=== PATIENT | male | born 1955 | race Caucasian/White ===

== ENCOUNTER 2018-09-12 01:52 | Outpatient (CLI) | payer OTHER, SELFPAY ==
--- NOTE | 2018-09-12 09:38 | DI.MRI_ITS ---
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 T2 sagittal, T1, T2, FLAIR and diffusion axial sequences were performed. There is a large area of encephalomalacia in the right frontal and parietal regions, as well as upper right temporal lobe. There is sulcal atrophy, which is more prominent than on the previous exam. The extent of the infarct appears greater than on the previous exam. There is mild global cerebral atrophy. No new infarct, hemorrhage or mass is seen. The vascular flow voids appear intact. The orbits, pituitary and mastoid air cells are unremarkable. There is mild maxillary sinus mucosal thickening. IMPRESSION: Large area of right frontoparietal and temporal encephalomalacia. No acute abnormalities are seen.
[2018-09-12 11:03] LABS: VALPROIC ACID 74.3 ug/mL (50-100)
[2018-09-12 11:31] LABS: TROPONIN-I 10.3 ug/mL (4.0-12.0); TSH (W/Ref FT4) 2.57 uIU/mL (0.36-3.74); Vitamin B12 242 pg/mL (193-986)
== END 2018-09-12 02:12 ==
PROVIDERS: PCP Family Medicine; Visit Provider Psychiatry & Neurology Neurology
DX: G40.109 Localization-related (focal) (partial) symptomatic epilepsy and epileptic syndromes with simple partial seizures, not intractable, without status epilepticus (principal); I69.211 Memory deficit following other nontraumatic intracranial hemorrhage; Z51.81 Encounter for therapeutic drug level monitoring; Z79.899 Other long term (current) drug therapy; G93.89 Other specified disorders of brain; G31.89 Other specified degenerative diseases of nervous system
CPT/HCPCS: 36415; 70551; 80156; 80164; 82607; 84443

== ENCOUNTER 2019-03-16 10:53 | Outpatient (CLI) | payer OTHER, SELFPAY ==
[2019-03-16 12:53] LABS: Abs Immature Grans 0.01 k/cumm (0.0-0.09); Absolute Basophil Count 0.02 k/cumm (0.0-0.2); Absolute Eosinophil Count 0.07 k/cumm (0.0-0.7); Absolute Lymphocyte Count 1.51 k/cumm (1.2-3.4); Absolute Monocyte Count 0.46 k/cumm (0.11-0.7); Absolute Neutrophil Count 2.63 k/cumm (1.2-6.7); Basophils % 0.4; Eosinophils % 1.5; HCT 44.8 % (40.0-50.0); HGB 14.5 g/dL (13.5-17.5); Immature Grans % 0.2 %; Lymphocytes % 32.1; Mean Corp. HGB Concentration 32.4 g/dL (32.0-36.0); Mean Corpuscular Volume 95.7 fL (80-95); Mean Platelet Volume 10.9 fL (8.0-11.0); Monocytes % 9.8; Platelet Count 177 x1000/uL (130-400); RBC 4.68 m/cumm (4.50-6.00); RBC Distribution Width 14.6 % (11.8-14.1)
[2019-03-16 13:35] LABS: ALT 15 U/L (16-63); AST 18 U/L (15-37); Albumin 3.8 g/dL (3.4-5.0); Alkaline Phosphatase 62 U/L (46-116); BUN 19 mg/dL (7-18); Bilirubin, Total 0.3 mg/dL (0.2-1.0); CREATININE 0.84 mg/dL (0.70-1.30); Chloride 109 mmol/L (98-107); Glucose 91 mg/dL (74-106); Potassium 4.1 mmol/L (3.5-5.1); Sodium 145 mmol/L (136-145); Total Protein 6.6 g/dL (6.4-8.2)
[2019-03-16 13:41] LABS: VALPROIC ACID 62.7 ug/mL (50-100)
[2019-03-16 13:48] LABS: TROPONIN-I 12.2 ug/mL (4.0-12.0)
[2019-03-17 09:23] LABS: PSA, Screening 0.6 ng/mL (0.0-4.5)
== END 2019-03-16 11:13 ==
PROVIDERS: PCP Family Medicine; Visit Provider Family Medicine
DX: Z00.00 Encounter for general adult medical examination without abnormal findings (principal); R56.9 Unspecified convulsions; Z51.81 Encounter for therapeutic drug level monitoring; Z12.5 Encounter for screening for malignant neoplasm of prostate
CPT/HCPCS: 36415; 80053; 84153; 80156; 80164; 85025

== ENCOUNTER 2019-05-07 16:21 | Outpatient (REF) | payer OTHER, SELFPAY ==
[2019-05-08 10:56] LABS: Bilirubin Small (Negative); Blood Trace-intact (Negative); Clarity Sl Cloudy (Clear); Glucose Negative (Negative); Ketones Trace mg/dL (Negative); Leukocyte Esterase Small (Negative); Nitrite Negative (Negative); Specific Gravity >= 1.030 (1.005-1.025); pH 6.5 (5-8)
[2019-05-08 10:58] LABS: Bacteria Few HPF (Negative); C & S Indicated? Yes; Casts 0-2 Hyaline LPF (Negative); Crystals Negative HPF (Negative); Epithelial Cells Few HPF (Negative); Mucus Moderate (Negative); RBC 0-2 HPF (0-2); WBC >50 HPF (0-5)
== END 2019-05-07 16:41 ==
LOC: LBN 16:21
PROVIDERS: PCP Family Medicine; Visit Provider Family Medicine
DX: R82.998 Other abnormal findings in urine (principal)
CPT/HCPCS: 87077; 81003; 81015; 87086; 87186

== ENCOUNTER 2020-03-17 12:53 | Outpatient (REF) | payer OTHER, SELFPAY ==
[2020-03-17 13:44] LABS: HCT 44.8 % (40.0-50.0); HGB 14.5 g/dL (13.5-17.5); MCH 30.5 pg (27.0-33.0); MCHC 32.4 % (32.0-36.0); MCV 94.3 fL (80-95); Platelet Count 181 10^3/uL (130-400); RBC 4.75 10^6/uL (4.36-5.78); RDW 14.4 % (11.8-14.1); RDW-SD 49.3 fL; WBC 3.52 10^3/uL (4.4-10.8)
[2020-03-17 14:00] LABS: ALT 22 U/L (16-63); AST 19 U/L (15-37); Alkaline Phosphatase 58 U/L (46-116); Anion Gap 3.8 mmol/L (3-11); BUN 20 mg/dL (7-18); Bilirubin, Total 0.3 mg/dL (0.2-1.0); CO2 29.2 mmol/L (21.0-32.0); CREATININE 0.9 mg/dL (0.70-1.30); Calcium 9.7 mg/dL (8.5-10.1); Chloride 108 mmol/L (98-107); Glucose 95 mg/dL (74-106); Potassium 4.4 mmol/L (3.5-5.1); Sodium 141 mmol/L (136-145); TROPONIN-I 9.9 ug/mL (4.0-12.0); Total Protein 6.7 g/dL (6.4-8.2)
[2020-03-17 14:02] LABS: VALPROIC ACID 47.4 ug/mL (50-100)
== END 2020-03-17 13:13 ==
LOC: LBN 12:53
PROVIDERS: PCP Family Medicine; Visit Provider Family Medicine
DX: Z00.00 Encounter for general adult medical examination without abnormal findings (principal); G40.109 Localization-related (focal) (partial) symptomatic epilepsy and epileptic syndromes with simple partial seizures, not intractable, without status epilepticus; I69.211 Memory deficit following other nontraumatic intracranial hemorrhage; Z51.81 Encounter for therapeutic drug level monitoring; Z79.899 Other long term (current) drug therapy
CPT/HCPCS: 80053; 85027; 80156; 80164

== ENCOUNTER 2020-07-19 18:00 | Outpatient (REF) | payer OTHER, SELFPAY ==
[2020-07-19 19:11] LABS: Absolute Basophil Count 0.02 10^3/uL (0.0-0.2); Absolute Eosinophil Count 0.09 10^3/uL (0.0-0.7); Absolute Lymphocyte Count 1.49 10^3/uL (1.2-3.4); Absolute Monocyte Count 0.38 10^3/uL (0.1-0.8); Absolute Neutrophil Count 1.56 10^3/uL (1.2-6.7); Basophils % 0.6; Eosinophils % 2.5; HCT 42.3 % (40.0-50.0); HGB 13.9 g/dL (13.5-17.5); Lymphocytes % 42.1; MCH 30.3 pg (27.0-33.0); MCHC 32.9 % (32.0-36.0); MCV 92.4 fL (80-95); MPV 11.9 fL (8.0-11.0); Monocytes % 10.7; Neutrophils % 44.1; Nucleated RBC 0 %; Platelet Count 162 10^3/uL (130-400); RBC 4.58 10^6/uL (4.36-5.78); RDW 14.6 % (11.8-14.1); RDW-SD 49.8 fL; WBC 3.54 10^3/uL (4.4-10.8)
== END 2020-07-19 18:01 | disposition home or self-care (01) ==
LOC: LBN 18:00
PROVIDERS: PCP Family Medicine; Visit Provider Family Medicine
DX: D72.819 Decreased white blood cell count, unspecified (principal)
CPT/HCPCS: 85025

== ENCOUNTER 2021-04-04 18:21 | Outpatient (REF) | payer OTHER, MEDICARE, SELFPAY ==
[2021-04-04 21:21] LABS: HCT 41.8 % (40.0-50.0); HGB 12.9 g/dL (13.5-17.5); MCH 28.9 pg (27.0-33.0); MCHC 30.9 % (32.0-36.0); MCV 93.5 fL (80-95); MPV 11.1 fL (8.0-11.0); Platelet Count 188 10^3/uL (130-400); RBC 4.47 10^6/uL (4.36-5.78); RDW 17.1 % (11.8-14.1); RDW-SD 59.2 fL; WBC 3.66 10^3/uL (4.4-10.8)
[2021-04-04 21:49] LABS: VALPROIC ACID 70.9 ug/mL
[2021-04-04 22:07] LABS: ALT 24 U/L (16-63); AST 19 U/L (15-37); Albumin 3.8 g/dL (3.4-5.0); Alkaline Phosphatase 75 U/L (46-116); Anion Gap 9.7 mmol/L (3-11); BUN 20 mg/dL (7-18); Bilirubin, Total 0.3 mg/dL (0.2-1.0); CO2 26.3 mmol/L (21.0-32.0); CREATININE 0.9 mg/dL (0.70-1.30); Calcium 9.4 mg/dL (8.5-10.1); Calculated LDL 100 mg/dL (<100); Chloride 109 mmol/L (98-107); Cholesterol 167 mg/dL (<200); Glucose 91 mg/dL (74-106); HDL Cholesterol 57 mg/dL (40-60); Potassium 4.3 mmol/L (3.5-5.1); Sodium 145 mmol/L (136-145); TROPONIN-I 7.6 ug/mL (4.0-12.0); Total Protein 7.1 g/dL (6.4-8.2); Triglyceride 50 mg/dL (<150); Vitamin B12 510 pg/mL (193-986)
== END 2021-04-04 18:22 | disposition home or self-care (01) ==
LOC: LBN 18:21
PROVIDERS: PCP Family Medicine; Visit Provider Family Medicine
DX: Z00.00 Encounter for general adult medical examination without abnormal findings (principal); E78.5 Hyperlipidemia, unspecified; E53.8 Deficiency of other specified B group vitamins; R56.9 Unspecified convulsions; Z51.81 Encounter for therapeutic drug level monitoring; Z79.899 Other long term (current) drug therapy
CPT/HCPCS: 80053; 80061; 85027; 80156; 80164; 82607

== ENCOUNTER 2021-08-29 02:56 | Outpatient (CLI) | payer OTHER, MEDICARE, SELFPAY ==
[2021-08-29 11:33] LABS: HCT 43.8 % (40.0-50.0); HGB 14.1 g/dL (13.5-17.5); MCH 29.6 pg (27.0-33.0); MCHC 32.2 % (32.0-36.0); MCV 92 fL (80-95); MPV 10.5 fL (8.0-11.0); Platelet Count 165 10^3/uL (130-400); RBC 4.77 10^6/uL (4.36-5.78); RDW 15.5 % (11.8-14.1); RDW-SD 52.3 fL; WBC 4.71 10^3/uL (4.4-10.8)
== END 2021-08-29 02:57 | disposition home or self-care (01) ==
LOC: LBO 02:58
PROVIDERS: PCP Family Medicine; Visit Provider Family Medicine
DX: G40.109 Localization-related (focal) (partial) symptomatic epilepsy and epileptic syndromes with simple partial seizures, not intractable, without status epilepticus (principal)
CPT/HCPCS: 36415; 85027

== ENCOUNTER 2022-03-30 01:51 | Outpatient (CLI) | payer OTHER, MEDICARE, SELFPAY ==
[2022-03-30 14:03] LABS: Abs Immature Grans 0.02 10^3/uL (0.0-0.06); Absolute Basophil Count 0.03 10^3/uL (0.0-0.2); Absolute Monocyte Count 0.45 10^3/uL (0.1-0.8); Absolute Neutrophil Count 2.09 10^3/uL (1.2-6.7); Basophils % 0.7; Eosinophils % 2.3; HCT 42.4 % (40.0-50.0); HGB 13.7 g/dL (13.5-17.5); Immature Grans % 0.5; Lymphocytes % 38.7; MCHC 32.3 % (32.0-36.0); MCV 93 fL (80-95); MPV 9.9 fL (8.0-11.0); Monocytes % 10.3; Neutrophils % 47.5; Platelet Count 184 10^3/uL (130-400); RBC 4.56 10^6/uL (4.36-5.78); RDW 14.9 % (11.8-14.1); RDW-SD 51.7 fL; WBC 4.39 10^3/uL (4.4-10.8)
[2022-03-30 14:53] LABS: TROPONIN-I 11.3 ug/mL (4.0-12.0); VALPROIC ACID 45.9 ug/mL
[2022-03-30 16:02] LABS: ALT 18 U/L (16-63); AST 18 U/L (15-37); Albumin 3.8 g/dL (3.4-5.0); Alkaline Phosphatase 71 U/L (46-116); Anion Gap 6.9 mmol/L (3-11); BUN 20 mg/dL (7-18); Bilirubin, Total 0.3 mg/dL (0.2-1.0); CO2 27.1 mmol/L (21.0-32.0); CREATININE 0.8 mg/dL (0.70-1.30); Calcium 9.7 mg/dL (8.5-10.1); Chloride 107 mmol/L (98-107); Estimated GFR 97.61 (mL/min/1.73m2); Glucose 95 mg/dL (74-106); Potassium 4.1 mmol/L (3.5-5.1); Sodium 141 mmol/L (136-145); Total Protein 6.7 g/dL (6.4-8.2); Vitamin B12 482 pg/mL (193-986)
== END 2022-03-30 01:52 | disposition home or self-care (01) ==
LOC: LBO 01:51
PROVIDERS: PCP Family Medicine; Visit Provider Family Medicine
DX: G40.109 Localization-related (focal) (partial) symptomatic epilepsy and epileptic syndromes with simple partial seizures, not intractable, without status epilepticus (principal); E53.8 Deficiency of other specified B group vitamins
CPT/HCPCS: 36415; 80053; 80156; 80164; 82607; 85025

== ENCOUNTER 2022-05-10 16:22 | Outpatient (REF) | payer OTHER, MEDICARE, SELFPAY ==
[2022-05-12 01:29] LABS: COVID-19 RT-PCR UVMMC Result Negative (Negative)
== END 2022-05-10 16:23 | disposition home or self-care (01) ==
LOC: LBN 16:22
PROVIDERS: PCP Family Medicine; Visit Provider Family Medicine
DX: Z20.822 Contact with and (suspected) exposure to COVID-19 (principal); Z01.818 Encounter for other preprocedural examination
CPT/HCPCS: U0003

== ENCOUNTER 2022-08-14 09:24 | Outpatient (CLI) | payer OTHER, MEDICARE, SELFPAY ==
--- NOTE | 2022-08-14 09:28 | DI.RAD_ITS ---
Exam(s) XR HIP PELVIS ADULT BL EXAM: XR HIP PELVIS ADULT BL CLINICAL HISTORY: b/l hip pain, M25.551, M25.552. TECHNIQUE: 2D digital imaging was performed. Five views. COMPARISON: No exams were available for comparison FINDINGS: BONES: No acute fracture is present. No bony destructive lesion is seen. JOINTS: No dislocation present. Severe narrowing of the left superior hip joint space with prominen t spurring at the superior acetabulum. Spurring also seen at the margin of the femoral head. Sclero sis is present. The right hip shows mild joint space narrowing and minimal periarticular spurring. The SI joints are unremarkable. There is small enthesophytes at the iliac wings. SOFT TISSUE: Normal. IMPRESSION: Advanced degenerative changes of the left hip. Minimal degenerative changes of the right hip. DATA REPOSITORY: RADIATION DOSE DELIVERED:
== END 2022-08-14 09:44 ==
LOC: DI 09:25
PROVIDERS: PCP Family Medicine; Visit Provider Family Medicine
DX: M16.0 Bilateral primary osteoarthritis of hip (principal)
CPT/HCPCS: 73521

== ENCOUNTER 2022-08-15 02:41 | Outpatient (CLI) | payer OTHER, MEDICARE, SELFPAY ==
[2022-08-15 13:05] LABS: ESR 1 mm/hr (0-20)
[2022-08-15 14:12] LABS: ALT 21 U/L (16-63); AST 16 U/L (15-37); Albumin 3.9 g/dL (3.4-5.0); Alkaline Phosphatase 76 U/L (46-116); Anion Gap 6.3 mmol/L (3-11); BUN 20 mg/dL (7-18); Bilirubin, Total 0.4 mg/dL (0.2-1.0); C-Reactive Protein 0.44 mg/dL (0.0-0.3); CO2 29.7 mmol/L (21.0-32.0); CREATININE 0.9 mg/dL (0.70-1.30); Calcium 9.7 mg/dL (8.5-10.1); Chloride 104 mmol/L (98-107); Estimated GFR 94.19 (mL/min/1.73m2); Glucose 88 mg/dL (74-106); Sodium 140 mmol/L (136-145); Total Protein 6.9 g/dL (6.4-8.2)
[2022-08-19 17:58] LABS: Anaplasma phagocytophilum Negative (Negative); B. miyamotoi PCR Negative (Negative); Babesia divergens/MO-1 Negative (Negative); Babesia duncani Negative (Negative); Babesia microti Negative (Negative); Ehrlichia chaffeensis Negative (Negative); Ehrlichia ewingii/canis Negative (Negative); Ehrlichia muris eauclairensis Negative (Negative)
== END 2022-08-15 02:42 | disposition home or self-care (01) ==
LOC: LBO 02:41
PROVIDERS: PCP Family Medicine; Visit Provider Family Medicine
DX: R53.1 Weakness (principal); W57.XXXA Bitten or stung by nonvenomous insect and other nonvenomous arthropods, initial encounter; T14.8XXA Other injury of unspecified body region, initial encounter
CPT/HCPCS: 36415; 80053; 85652; 87798; 84443; 86140

== ENCOUNTER 2022-10-30 02:49 | Outpatient (CLI) | payer OTHER, MEDICARE, SELFPAY ==
[2022-10-30 13:00] LABS: HCT 48.1 % (40.0-50.0); HGB 15.4 g/dL (13.5-17.5); MCH 29.7 pg (27.0-33.0); MCV 93 fL (80-95); MPV 11.1 fL (8.0-11.0); Platelet Count 190 10^3/uL (130-400); RBC 5.19 10^6/uL (4.36-5.78); RDW 14.9 % (11.8-14.1); RDW-SD 51.2 fL; WBC 4.38 10^3/uL (4.4-10.8)
[2022-10-30 13:28] LABS: ALT 24 U/L (16-63); AST 25 U/L (15-37); Alkaline Phosphatase 82 U/L (46-116); Anion Gap 6.1 mmol/L (3-11); BUN 18 mg/dL (7-18); Bilirubin, Total 0.3 mg/dL (0.2-1.0); CO2 29.9 mmol/L (21.0-32.0); CREATININE 0.9 mg/dL (0.70-1.30); Calcium 9.9 mg/dL (8.5-10.1); Chloride 106 mmol/L (98-107); Estimated GFR 93.61 (mL/min/1.73m2); Glucose 94 mg/dL (74-106); Potassium 4.9 mmol/L (3.5-5.1); Sodium 142 mmol/L (136-145); Total Protein 7.3 g/dL (6.4-8.2)
[2022-10-30 19:05] LABS: Valproic Acid 72 ug/mL (50-100)
[2022-10-30 19:39] LABS: Carbamazepine 8.4 ug/mL (4.0-12.0)
== END 2022-10-30 02:50 | disposition home or self-care (01) ==
LOC: LOS 02:49
PROVIDERS: PCP Family Medicine; Visit Provider Family Medicine
DX: G40.109 Localization-related (focal) (partial) symptomatic epilepsy and epileptic syndromes with simple partial seizures, not intractable, without status epilepticus (principal); K21.9 Gastro-esophageal reflux disease without esophagitis
CPT/HCPCS: 36415; 80053; 85027; 80156; 80164

== ENCOUNTER 2022-11-12 11:19 | Outpatient (CLI) | payer OTHER, MEDICARE, SELFPAY ==
--- NOTE | 2022-11-12 09:00 | DI.RAD_ITS ---
Exam(s) XR PELVIS AP EXAM: XR PELVIS AP CLINICAL HISTORY: HIP PAIN. TECHNIQUE: 2D digital imaging was performed. COMPARISON: CR XR HIP PELVIS ADULT BL from 08/14/2022 FINDINGS: Single view. No evidence of pelvic nor hip fracture. Degenerative changes in the hips noted again more prominent on the left side where there is [id number] narrowing of the superior aspect of the left hip joint. More moderate degenerative changes in the right hip noted. IMPRESSION: Unchanged from 08/14/2022. Advanced degenerative changes in the left hip. Milder degenerative mills es in the right hip. DATA REPOSITORY: RADIATION DOSE DELIVERED:
== END 2022-11-12 11:20 | disposition home or self-care (01) ==
LOC: DIORS 11:19
PROVIDERS: PCP Family Medicine; Visit Provider Student in an Organized Health Care Education/Training Program
DX: M25.551 Pain in right hip (principal); M25.552 Pain in left hip
CPT/HCPCS: 72170

== ENCOUNTER 2022-12-24 01:02 | Outpatient (CLI) | payer OTHER, MEDICARE, SELFPAY ==
[2022-12-24 16:09] LABS: HCT 46.1 % (40.0-50.0); HGB 15.1 g/dL (13.5-17.5); MCH 30.3 pg (27.0-33.0); MCHC 32.8 % (32.0-36.0); MCV 92 fL (80-95); MPV 11.1 fL (8.0-11.0); Platelet Count 188 10^3/uL (130-400); RBC 4.99 10^6/uL (4.36-5.78); RDW 14.3 % (11.8-14.1); RDW-SD 49.1 fL; WBC 4.54 10^3/uL (4.4-10.8)
[2022-12-24 16:40] LABS: Anion Gap 6.7 mmol/L (3-11); BUN 19 mg/dL (7-18); CO2 29.3 mmol/L (21.0-32.0); CREATININE 0.9 mg/dL (0.70-1.30); Calcium 10.2 mg/dL (8.5-10.1); Chloride 103 mmol/L (98-107); Estimated GFR 93.61 (mL/min/1.73m2); Glucose 90 mg/dL (74-106); Potassium 4.1 mmol/L (3.5-5.1); Sodium 139 mmol/L (136-145)
== END 2022-12-24 01:03 | disposition home or self-care (01) ==
PROVIDERS: PCP Family Medicine; Visit Provider Student in an Organized Health Care Education/Training Program
DX: M16.11 Unilateral primary osteoarthritis, right hip (principal); M16.12 Unilateral primary osteoarthritis, left hip; Z01.818 Encounter for other preprocedural examination
CPT/HCPCS: 36415; 80048; 85027; 86850; 86900; 86901

== ENCOUNTER 2023-01-16 05:51 | Day surgery (SDC) | payer OTHER, MEDICARE, SELFPAY ==
[2023-01-16] VITALS (12 sets, daily range): BP systolic 72–146; BP diastolic 45–100; PULSE 45–57; RESP 15–20; TEMP 36.3–36.6; O2SAT 94–96; BMI 32.7
[2023-01-16] MEDS: Celecoxib 200 MG CAP 400 MG PO (06:56)
[2023-01-16] MEDS: Acetaminophen 500 MG TAB 1000 MG PO (06:56)
[2023-01-16] MEDS: Lactated Ringers 1,000 ML 80 ML IV (06:57)
--- NOTE | 2023-01-16 06:59 | ANES.PREOP_ITS ---
General Info Date of Service Date Performed: 01/16/23 Height: 5 ft 10 in Weight: 103.4 kg Body Mass Index (BMI): 32.7 Surgical Procedure: Operation Date: 01/16/23 08:00 Proposed Procedure Side Surgeon p Hip Total Hip Anterior Bilateral, ACTIS Bilateral Gino Mendoza MD Meds Allergies and Home Medications Allergies Allergy/AdvReac Type Severity Reaction Status Date / Time levetiracetam [From [facility]] AdvReac Unknown SUICIDAL Verified 01/15/23 10:59 IDEATION Home Medication Medication Instructions Recorded acetaminophen 500 mg tablet 1 - 2 tab PO PRN 05/16/12 (Acetaminophen Extra Strength) aspirin 81 mg tablet,delayed 81 mg PO DAILY 05/16/12 release metronidazole 0.75 % topical cream 2 - 5 gm topical BID PRN #45 grams 08/12/17 (Rosadan) multivitamin 1 tab PO DAILY 10/27/18 cyanocobalamin (vitamin B-12) 500 1,000 mcg PO DAILY 01/05/19 mcg tablet turmeric (bulk) 95 % powder % miscellaneous 01/05/19 (Curcumin) methylphenidate HCl 5 mg tablet 10 mg (2 x 5 mg) PO BID #120 01/22/19 tab-caps cholecalciferol (vitamin D3) 25 25 mcg PO DAILY 07/19/20 mcg (1,000 unit) capsule carbamazepine 200 mg 200 mg PO QAM #90 tabs 04/23/22 tablet,extended release,12 hr (Tegretol XR) carbamazepine 400 mg See Rx Instructions PO BID #270 04/23/22 tablet,extended release,12 hr tab-caps (Tegretol XR) citalopram 10 mg tablet 10 mg PO DAILY #90 tab-caps 04/23/22 divalproex 500 mg tablet,delayed 500 mg PO BID #180 tab-caps 04/23/22 release donepezil 10 mg tablet 10 mg PO HS 01/15/23 Current Visit Medications: Current Medications Generic Name Dose Route Start Last Admin Trade Name Freq PRN Reason Stop Dose Admin Acetaminophen 1,000 mg 01/16/23 06:00 01/16/23 06:56 Acetaminophen 500 Mg Tab PO 1,000 mg PREOP CHONG Administration Celecoxib 400 mg 01/16/23 06:00 01/16/23 06:56 Celecoxib 200 Mg Cap PO 400 mg PREOP CHONG Administration Tranexamic Acid 1,000 mg/ 60 mls @ 360 mls/hr 01/16/23 06:00 Sodium Chloride IV PREOP CHONG Tranexamic Acid 1,000 mg/ 60 mls @ 360 mls/hr 01/16/23 06:00 Sodium Chloride IV DIRECTED CHONG Ringer's Solution 1,000 mls @ 80 mls/hr 01/16/23 06:00 01/16/23 06:57 IV 01/16/23 23:59 80 mls/hr INFUSION CHONG Administration Cefazolin Sodium/Dextrose 2 gm in 50 mls @ 100 mls/hr 01/16/23 06:00 Ancef Duplex IVPB 01/16/23 23:59 PREOP CHONG IV Miscellaneous Supplies 1 each 01/16/23 06:00 Iv Access IV 01/16/23 23:59 DIRECTED CHONG Sodium Chloride 0 ml 01/16/23 06:00 Normal Saline Flush 10 Ml Syr IV 01/16/23 23:59 PRN PRN Sodium Chloride 0 ml 01/16/23 06:00 Normal Saline 10 Ml Vial IJ 01/16/23 23:59 DIRECTED PRN Sterile Water 0 ml 01/16/23 06:00 Water,Injection,Sterile 10 Ml Vial IJ 01/16/23 23:59 DIRECTED PRN PFSH Active Problems Active Problems: Problem Status Onset Code Osteoarthritis of both hips M16.0 Left hip pain M25.552 Hip pain, bilateral M25.551, M25.552 Weakness R53.1 Tick bite W57.XXXA Encounter for screening colonoscopy Z12.11 Hyperlipemia E78.5 Facial lesion L98.9 Leukopenia D72.819 Hearing deficit H91.90 Dysuria R30.0 B12 deficiency E53.8 Anxiety F41.9 Focal epilepsy G40.109 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 Annual physical exam 09/23/14 Z00.00 Depression 09/23/14 F32.9 Facial skin lesion 08/12/17 L98.9 Gastroesophageal reflux disease K21.9 Obstructive sleep apnea syndrome G47.33 Seizure 05/13/13 R56.9 Subarachnoid hemorrhage I60.9 Medical History Medical History (Updated 01/15/23 @ 10:55 by Nikko Ignacio) CVA (cerebral vascular accident) 2013 Surgical History Surgical History Status post vasectomy Vasectomy Tobacco Smoking/Tobacco Use Status: Never Passive smoking exposure: No Second hand exposure: No Alcohol Alcohol Intake: current Alcohol intake frequency: a few times a month Alcohol type: beer and wine Substance Use Substance use: Never Substance use type: does not use Vital Signs and Lab Results Vital Signs Most Recent Vital Signs in EMR: Most Recent Vital Signs Temp Pulse Resp BP Pulse Ox 36.6 C 54 L 16 146/87 H 96 01/16/23 06:15 01/16/23 06:15 01/16/23 06:15 01/16/23 06:15 01/16/23 06:15 Lab Results Blood Type / Crossmatch: Patient ABO/Rh A Positive 12/25/22 Antibody Screen NEGATIVE 12/25/22 Complete Blood Count: White Blood Count 4.54 10^3/uL (4.4-10.8) 12/24/22 15:35 Red Blood Count 4.99 10^6/uL (4.36-5.78) 12/24/22 15:35 Hemoglobin 15.1 g/dL (13.5-17.5) 12/24/22 15:35 Hematocrit 46.1 % (40.0-50.0) 12/24/22 15:35 Platelet Count 188 10^3/uL (130-400) 12/24/22 15:35 Complete Metabolic Panel: Sodium 139 mmol/L (136-145) 12/24/22 15:35 Potassium 4.1 mmol/L (3.5-5.1) 12/24/22 15:35 Chloride 103 mmol/L (98-107) 12/24/22 15:35 Carbon Dioxide 29.3 mmol/L (21.0-32.0) 12/24/22 15:35 BUN 19 mg/dL (7-18) H 12/24/22 15:35 Creatinine 0.9 mg/dL (0.70-1.30) 12/24/22 15:35 Est GFR (CKD-EPI 2020) 93.61 (mL/min/1.73m2) 12/24/22 15:35 Calcium 10.2 mg/dL (8.5-10.1) H 12/24/22 15:35 Glucose 90 mg/dL (74-106) 12/24/22 15:35 Liver Function Panel: No Data to Display Coagulation Panel: 2 No Data to Display Cardiac Panel: No Data to Display Arterial Blood Gas: No Data to Display Venous Blood Gas: No Data to Display Pancreas Panel: No Data to Display Thyroid Panel: No Data to Display Infectious Disease: No Data to Display Blood Cultures: No Data to Display Toxicology Panel: No Data to Display Anesthesia Assessment and Plan Anesthesia History Personal History: No History of Anesthesia Complications Family History: No Family History of Anesthesia Complications Exercise Tolerance Exercise Tolerance: Metabolic Equivalents>4 Pertinent Negatives Pertinent Negatives: No Symptoms of GERD, No Major Cardiovascular Symptoms or Complaints, No Major Pulmonary Symptoms or Complaints and Other (CVA 2011) Cardiac & Pulmonary Exam Cardiac Exam: Normal S1/S2 Heart Sounds Pulmonary Exam: Clear Bilateral Breath Sounds Implantable Cardiac Device Does patient have a Pacemaker or an ICD?: No Airway Exam Known Difficult Airway: No Mallampati Class: 3 Mouth Opening: Normal (> 3cm) Thyromental Distance: Greater than 3 cm Neck Range of Motion: Limited ROM (limited extension, DJD) Neck Circumference: Normal Teeth Condition: Normal Dentition ASA Classification ASA Score: ASA 2 Emergency Case?: No NPO Status NPO Status: NPO Clears >2 hours, Solids >8 hours Anesthesia Plan Resuscitation Status: Full Code Anesthesia Technique: Spinal Anesthesia Airway Planned: Natural Airway Monitors Used: Standard Monitors Preoperative Comments:: Sleep apnea, CPAP
--- NOTE | 2023-01-16 07:00 | DI.RAD_ITS ---
Exam(s) XR HIP LT IN OR EXAM: XR HIP LT IN OR CLINICAL HISTORY: oesteoarthritis TECHNIQUE: 2D and realtime digital imaging was performed. CONTRAST MATERIAL: Refer to procedure report. COMPARISON: CR XR PELVIS AP from 11/12/2022 FINDINGS: Fluoroscopy was provided for Dr. Mendoza during the performance of a left total hip replacement. P lease refer to the procedure report for complete details. Ka,r=7.6 mGy IMPRESSION: RADIATION DOSE DELIVERED:
[2023-01-16] MEDS: ceFAZolin 2 GM/50 ML BAG IVPB (07:33)
--- NOTE | 2023-01-16 08:47 | DI.RAD_ITS ---
Exam(s) XR HIP RT IN OR EXAM: XR HIP RT IN OR CLINICAL HISTORY: osteoarthritis TECHNIQUE: 2D and realtime digital imaging was performed. CONTRAST MATERIAL: Refer to procedure report. COMPARISON: CR XR HIP PELVIS ADULT BL from 08/14/2022 CR XR PELVIS AP from 11/12/2022 FINDINGS: Fluoroscopy was provided for Dr. Mendoza during the performance of a right total hip replacement. Please refer to the procedure report for complete details. Ka,r=8.41 mGy IMPRESSION: RADIATION DOSE DELIVERED:
--- NOTE | 2023-01-16 09:00 | ROE_ITS ---
Date of service: 01/16/23 Time of Service: 07:50 Operative Note Operative Note DATE OF PROCEDURE: 01/16/23 PRE-OP DIAGNOSIS: Bilateral Hip Osteoarthritis POST-OP DIAGNOSIS: same PROCEDURE: Bilateral Anterior Total Hip Arthroplasty with Intraoperative Navigation SURGEON: Gino Mendoza BUTTON PUNCHER: Galo Hameed ANESTHESIA TYPE: Spinal Refer to Anesthesia Record ESTIMATED BLOOD LOSS: 400 PATHOLOGY: none sent TOURNIQUET TIME: 0 COMPLICATIONS: None Patient was transported to: PACU Patient's condition: stable Implants: RIGHT: 1. Depuy Holcombe Acetabular Component, 58mm 2. Depuy Acetabular Liner, [id number] 3. Depuy Actis Standard Collared Femoral Stem, Size 8 4. Depuy Altrx Ceramic Femoral Head, Size 36+1.5mm LEFT: 1. Depuy Holcombe Acetabular Component, 58mm 2. Depuy Acetabular Liner, [id number] 3. Depuy Actis Standard Collared Femoral Stem, Size 7 4. Depuy Altrx Ceramic Femoral Head, Size 36+5mm Indications: I have seen Basim in clinic for symptoms of hip arthritis, confirmed with radiographic findings. [NAME] has exhausted nonoperative methods and was having significant limitations in daily function and desired better function and less pain. I discussed the technical details of a hip replacement. I explained the risks of the procedure to include, but not limited to, bleeding, infection, pain, stiffness, fracture, damage to nerves and vessels, damage to muscles and tendons, loosening, instability, leg length inequality, need for repeat procedure, blood clot and cardiopulmonary demise. Despite these risks, [NAME] elected to proceed. Findings: There was significant signs of arthritis throughout both hips. Procedure Description: Basim was greeted in the preoperative holding area where the correct side was identified and marked. The consent was reviewed with the patient and signed. The history and physical was updated. All questions were answered. He was taken back to the operating room. A spinal anesthestic was then administered. The feet were wrapped with cast padding and Coban and then placed into the boot liners and then into the boots. Care was taken to protect the skin and make sure the heels were fully down and the boots were stable. The patient was then positioned onto the HANA table. Both legs were held in a neutral position. SCDs were applied. The patient was then slid down onto a peroneal post. Prophylactic antibiotics in the form of Cefazolin were administered. 1g of Tranxemic Acid was given intravenously within 30 minutes of incision. The right leg was then prepped with Chloraprep and draped in a standard fashion. A second prep with Chloraprep was performed prior to placement of a shower-curtain type drape with Iodine impregnated skin protec tion. A timeout to confirm correct identity, side and site, procedure, allergies, anesthesia, and medical concerns was performed. RIGHT HIP: An obliquely oriented incision was made starting lateral to the ASIS and running distal over the Tensor Fascia Cyndie (TFL) muscle belly toward the fibular head, approximately 10cm. The skin and soft tissue was dissected sharply, through Ana Maria?s fascia, and to the fascia of the TFL. With the fascia and superior border of the IT band identified, the fascia was incised with a new knife just above any perforators from the IT band. The TFL muscle belly was bluntly dissected away from the fascia and moved laterally. The fat between TFL and rectus was identified to ensure the dissection was not within the TFL. Blunt dissection created space between abductors and the capsule and retractor was placed over the lateral femoral neck. The fibers of the rectus femoris tendon were identified and these were freed from the anterior capsule. A second cobra retractor was placed around the medial femoral neck. The TFL was further retracted laterally to show the deep fascia. Careful dissection through this layer identified three main crossing vessels of the lateral femoral circumflex. These were cauterized in multiple locations and then cut without any noticeable bleeding. The TFL was further released bluntly from the deep fascia to expose anterior hip capsule and fat The Paul orthopaedic retractor was then placed beneath the TFL and against sartorius and medial soft tissues to protect and retract the soft tissues. A T-capsulotomy was then performed starting at the superior lateral acetabulum and moving distally to the intertrochanteric ridge. These capsular flaps were tagged with a No. 1 Ethibond and elevated from within. The capsular flaps were released to the shoulder of the lateral neck and to the lesser trochanter to give excellent visualization of the proximal femur. A neck osteotomy was performed using an oscillating saw based on preoperative templates. This cut started in the shoulder and of the lateral neck and exited medially. The saw was at all times directed medially to avoid injury to the greater trochanter. Gross traction was applied to the leg and the osteotomy opened. The femoral head was removed with a corkscrew, making sure to protect the TFL on its exit. Traction was released after head removal. This was measured on the back table to determine the starting reamer size. Portions of the rectus obscuring visualization were minimally elevated off the superior acetabulum. An anterior retractor was placed over the anterior wall between capsule and labrum and attached to the Gripper retraction system. The femur was rotated to 90 degrees and medial capsule was fully released until the lesser trochanter was palpable and visible; the femur was returned to 30 degrees. A posterior retractor was placed similarly between capsule and labrum. This provided excellent visualization. The contents of the cotyloid fossa were removed with electrocautery and the labrum was removed with a knife. There was a notable floor osteophyte. 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 Acetabular reaming began with a 54mm reamer. This first reaming was directed anterior to posterior and medial to get down to the true floor. This was inspected and reamed until the true floor was reached. The anterior retractor was then released and entry and exit was provided by traction on the capsular flaps. I then reamed sequentially up to a 58mm reamer where good fit was obtained. The larger reamers were oriented based on anatomical reference of the anterior and lateral lord to ensure proper abduction and anteversion. Positioning and size was confirmed with the fluoroscopy. A 58mm Depuy Holcombe acetabular component was selected. The acetabulum was reamed around the periphery with the selected acetabular size to prevent a rim fit. The deep tis sues were irrigated. The acetabular component was then impacted in a position of about 40-45 degrees of abduction and 15-20 degrees of anteversion, using the patient?s anatomy as the ultimate landmark. Fluoroscopy was used to confirm this. There was excellent internet database specialist of the acetabular component and the inserting handle was removed. The acetabular liner, Depuy [id number] polyethylene liner, was inserted and lined up with the tines of the acetabular component. There was no soft tissue interposition. The liner was then impacted into position and confirmed to be well-seated. A portion of the kendell-articular cocktail was then injected around the acetabulum into the capsule and periosteum. This cocktail consisted of 123mg of Ropivacaine, 0.25mg of Epinephrine, 0.04mg of Clonidine, and 15mg of Ketorolac, diluted to 50cc. The leg was rotated to 120 degrees. Any remaining medial capsule was released until the lesser trochanter was easily palpable. A retractor was placed medially. The lateral capsule was further released into the shoulder to allow access to the greater trochanter. A Luevano retractor was placed over the greater trochanter which allowed the trochanter to flip in front of the capsule for excellent exposure. The leg was brought down into maximal extension and 20 degrees of adduction while ensuring there was no impingement on the acetabulum. Any remnant capsule within the trochanter was released. Piriformis and obturator externis were identified and protected. There was excellent access to the proximal femur. The lateral neck remnant was removed with a rongeur. A blunt canal probe was used to identify the canal and trajectory for later broaching. A box osteotome initiated the broach course. A small curved rasp and a curved curette were used to work laterally. Broaching then began with a starter Actis broach. This was inserted manually around the trochanter and into the canal before mallet blows. The broach was seated to the neck cut level based on the neck cut and the preoperative template. Sequential broaching was continued with the TruckTrackse pneumatic broaching device until a tight fit was obtained with good rotational control of the femur. A trial standard neck was inserted along with a +1.5 trial head. The leg was brought out of extension and adduction and then reduced with traction and internal rotation. The leg was stable anteriorly in a position of 30 degrees of extension and 90 degrees of external rotation. Fluoroscopy was used to ensure there was no fracture and the stem was seated well. Leg lengths were checked with an AP pelvis and pelvic reference points. [employer] navigation system was used to confirm appropriate positioning and leg length and offset. Once content with the desired offset and leg lengths, the leg was brought back into extension, external rotation and adduction. The periosteum and surrounding tissue was injected with remaining portion of the kendell-articular cocktail. The proximal femur was irrigated as well as the deep tissues. The [employer] HRis standard collared stem, size 8, was then manually inserted into the proximal femur making sure to control rotation. It was then malleted into position with light blows, giving breaks to allow bone expansion and decrease risk of fracture. The selected Depuy Altrx Ceramic Head, size 36+1.5mm, was then placed onto the clean and dry trunnion and secured with impaction onto the tapered fit. The leg was brought back out of extension and adduction and reduced with traction and internal rotation. Stability was confirmed with no shuck at 90 degrees of external rotation and 30 degrees of extension. No impingement through range of motion arc. Final x-ray images were obtained with fluoroscopy to confirm adequate positioning and no intraoperative fracture. The deep tissues were thoroughly irrigated with Irrisept chlorhexadine solution. This was allowed to sit in the wound for 3 minutes before being thoroughly irrigated out with normal saline. The capsule was then reapproximated with the previously placed Ethibond sutures. The TFL fascia was finally closed with a No. 2 Stratafix, barbed suture. Deep tissues were then reapproximated with 0 Vicryl and a running 2-0 Vicryl. The skin was closed with a running 4-0 Monocryl in a subcuticular fashion. This was reinforced with skin glue. A Mepilex silver dressing was applied. The drapes from the right side were removed and the room was switched. The back table was kept sterile. The left hip was then prepped ChloraPrep. LEFT HIP: U drapes were placed around the surgical site. A second prep with Chloraprep was performed prior to placement of a shower-curtain type drape with Iodine impregnated skin protection. A timeout to confirm correct identity, side and site, procedure, allergies, anesthesia, and medical concerns was performed. An obliquely oriented incision was made starting lateral to the ASIS and running distal over the Tensor Fascia Cyndie (TFL) muscle belly toward the fibular head, approximately 10cm. The skin and soft tissue was dissected sharply, through Ana Maria?s fascia, and to the fascia of the TFL. With the fascia and superior border of the IT band identified, the fascia was incised with a new knife just above any perforators from the IT band. The TFL muscle belly was bluntly dissected away from the fascia and moved laterally. The fat between TFL and rectus was identified to ensure the dissection was not within the TFL. Blunt dissection created space between abductors and the capsule and retractor was placed over the lateral femoral neck. The fibers of the rectus femoris tendon were identified and these were freed from the anterior capsule. A second cobra retractor was placed around the medial femoral neck. The TFL was further retracted laterally to show the deep fascia. Careful dissection through this layer identified three main crossing vessels of the lateral femoral circumflex. These were cauterized in multiple locations and then cut without any noticeable bleeding. The TFL was further released bluntly from the deep fascia to expose anterior hip capsule and fat The Paul orthopaedic retractor was then placed beneath the TFL and against sartorius and medial soft tissues to protect and retract the soft tissues. A T-capsulotomy was then performed starting at the superior lateral acetabulum and moving distally to the intertrochanteric ridge. These capsular flaps were tagged with a No. 1 Ethibond and elevated from within. The capsular flaps were released to the shoulder of the lateral neck and to the lesser trochanter to give excellent visualization of the proximal femur. A neck osteotomy was performed using an oscillating saw based on preoperative templates. This cut started in the shoulder and of the lateral neck and exited medially. The saw was at all times directed medially to avoid injury to the greater trochanter. Gross traction was applied to the leg and the osteotomy opened. The femoral head was removed with a corkscrew, making sure to protect the TFL on its exit. Traction was released after head removal. This was measured on the back table to determine the starting reamer size. Portions of the rectus obscuring visualization were minimally elevated off the superior acetabulum. An anterior retractor was placed over the anterior wall between capsule and labrum and attached to the Gripper retraction system. The femur was rotated to 90 degrees and medial capsule was fully released until the lesser trochanter was palpable and visible; the femur was returned to 30 degrees. A posterior retractor was placed similarly between capsule and labrum. This provided excellent visualization. The contents of the cotyloid fossa were removed with electrocautery and the labrum was removed with a knife. There was a notable floor osteophyte. 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 Acetabular reaming began with a 53mm reamer. This first reaming was directed anterior to posterior and medial to get down to the true floor. This was inspected and reamed until the true floor was reached. The anterior retractor w as then released and entry and exit was provided by traction on the capsular flaps. I then reamed sequentially up to a 56mm reamer where good fit was obtained. The larger reamers were oriented based on anatomical reference of the anterior and lateral lord to ensure proper abduction and anteversion. Positioning and size was confirmed with the fluoroscopy. A 56mm Depuy Holcombe acetabular component was selected. The acetabulum was reamed around the periphery with the selected acetabular size to prevent a rim fit. The deep tissues were irrigated. The acetabular component was then impacted in a position of about 40-45 degrees of abduction and 15-20 degrees of anteversion, using the patient?s anatomy as the ultimate landmark. Fluoroscopy was used to confirm this. There was excellent internet database specialist of the acetabular component and the inserting handle was removed. The acetabular liner, Depuy [id number] polyethylene liner, was inserted and lined up with the tines of the acetabular component. There was no soft tissue interposition. The liner was then impacted into position and confirmed to be well-seated. A portion of the kendell-articular cocktail was then injected around the acetabulum into the capsule and periosteum. This cocktail consisted of 123mg of Ropivacaine, 0.25mg of Epinephrine, 0.04mg of Clonidine, and 15mg of Ketorolac, diluted to 50cc. The leg was rotated to 120 degrees. Any remaining medial capsule was released until the lesser trochanter was easily palpable. A retractor was placed medially. The lateral capsule was further released into the shoulder to allow access to the greater trochanter. A Luevano retractor was placed over the greater trochanter which allowed the trochanter to flip in front of the capsule for excellent exposure. The leg was brought down into maximal extension and 20 degrees of adduction while ensuring there was no impingement on the acetabulum. Any remnant capsule within the trochanter was released. Piriformis and obturator externis were identified and protected. There was excellent access to the proximal femur. The lateral neck remnant was removed with a rongeur. A blunt canal probe was used to identify the canal and trajectory for later broaching. A box osteotome initiated the broach course. A small curved rasp and a curved curette were used to work laterally. Broaching then began with a starter Actis broach. This was inserted manually around the trochanter and into the canal before mallet blows. The broach was seated to a few millimeters below the cut level based on the neck cut and the preoperative template. Sequential broaching was continued with the PredPol[employer]ise pneumatic broaching device until a tight fit was obtained with good rotational control of the femur. A trial standard neck was inserted along with a +5 trial head. The leg was brought out of extension and adduction and then reduced with traction and internal rotation. The leg was stable anteriorly in a position of 30 degrees of extension and 90 degrees of external rotation. Fluoroscopy was used to ensure there was no fracture and the stem was seated well. Leg lengths were checked with an AP pelvis and pelvic reference points. [employer] navigation system was used to confirm appropriate positioning and leg length and offset. Once content with the desired offset and leg lengths, the leg was brought back into extension, external rotation and adduction. The periosteum and surrounding tissue was injected with remaining portion of the kendell-articular cocktail. The proximal femur was irrigated as well as the deep tissues. The Depuy Actis standard collared stem, size 7, was then manually inserted into the proximal femur making sure to control rotation. It was then malleted into position with light blows, giving breaks to allow bone expansion and decrease risk of fracture. The selected Depuy Altrx Ceramic Head, size 36+5mm, was then placed onto the clean and dry trunnion and secured with impaction onto the tapered fit. The leg was brought back out of extension and adduction and reduced with traction and internal rotation. Stability was confirmed with no shuck at 90 degrees of external rotation and 30 degrees of extension. No impingement through range of motion arc. Final x-ray images were obtained with fluoroscopy to confirm adequate positioning and no intraoperative fracture. The deep tissues were thoroughly irrigated with Surgiphor, betadine solution. This was allowed to sit in the wound for 3 minutes before being thoroughly irrigated out with normal saline. The capsule was then reapproximated with the previously placed Ethibond sutures. The TFL fascia was finally closed with a No. 2 Stratafix, barbed suture. Deep tissues were then reapproximated with 0 Vicryl and a running 2-0 Vicryl. The skin was closed with a running 4-0 Monocryl in a subcuticular fashion. This was reinforced with skin glue. A Mepilex silver dressing was applied. At the end of the case, all counts were correct. Basim was transferred to the hospital bed without difficulty and suffering no apparent complication. Basim has a good prognosis. Physical therapy will start today and without restrictions, weight-bearing as tolerated. Aspirin 81mg BID will be used for DVT prophylaxis.
[2023-01-16] MEDS: ePHEDrine 25 MG/5 ML Syringe IVP ×2 (11:00→11:08)
--- NOTE | 2023-01-16 13:00 | PDOC.DSDIS_ITS ---
Date of service: 01/16/23 Time of Service: 13:00 Discharge Plan Disposition Patient Disposition: Home Condition: Good Discharge Details Reason For Visit: B/L THR Admit Date/Time: 01/16/23 05:51 Admit Provider: Gino Mendoza Attending Provider: Gino Mendoza Primary Care Provider: Oriana Albarado Home Meds and New Rx's Prescriptions: New acetaminophen 500 mg tablet 1,000 mg PO TID Qty: 90 3RF aspirin 81 mg tablet,delayed release (DR/EC) 81 mg PO BID Qty: 60 0RF pantoprazole 40 mg tablet,delayed release (DR/EC) 40 mg PO DAILY Qty: 30 0RF dexamethasone 4 mg tablet 4 mg PO DAILY Qty: 2 0RF oxycodone 5 mg tablet 5 mg PO Q4H MDD 6 tabs PRN (Reason: pain) Qty: 20 0RF celecoxib 200 mg capsule 200 mg PO BID Qty: 60 0RF Continued multivitamin Tablet 1 tab PO DAILY cyanocobalamin (vitamin B-12) 500 mcg tablet 1,000 mcg PO DAILY Curcumin 95 % powder MC carbamazepine [Tegretol XR] 200 mg tablet extended release 12 hr 200 mg PO QAM Qty: 90 12RF Rx Instructions: in addition to 400mg in AM (total 600mg) carbamazepine [Tegretol XR] 400 mg tablet extended release 12 hr See Rx Instructions PO BID Qty: 270 5RF Rx Instructions: PO BID; 1 tab in AM (with 200mg) and 2 tabs in PM (dispense 270 200mg tabs if 400 not in stock citalopram 10 mg tablet 10 mg PO DAILY Qty: 90 12RF divalproex 500 mg tablet,delayed release (DR/EC) 500 mg PO BID Qty: 180 12RF methylphenidate HCl 5 mg tablet 10 mg PO BID MDD 4 Qty: 120 0RF cholecalciferol (vitamin D3) 25 mcg (1,000 unit) capsule 25 mcg PO DAILY metronidazole [Rosadan] 45 GM cream 2 - 5 gm Topical BID PRNQty: 45 donepezil 10 mg tablet 10 mg PO HS Discontinued aspirin 81 MG tablet,delayed release (DR/EC) 81 mg PO DAILY acetaminophen [Acetaminophen Extra Strength] 500 MG tablet 1 - 2 tab PO PRN Discharge Instructions Additional Instructions: Total Hip Discharge Instructions Activity: The most important activity is to walk. You should try to take short walks a few times a day. You have no restrictions on movement or positioning, but do not try to force what you do. You will find some stiffness and weakness with hip flexion (lifting your knee). Do not try to strengthen this too early, continue to practice walking and stairs and this will come. - Outpatient physical therapy can be helpful to help return you to a normal gait and improve your flexibility and strength. This can start around 2 weeks. For some patients, it?s not necessary. Usually this is determined at the time of discharge or at the first post-operative visit. - You should wear the CHYNA hose on both legs for 2 weeks. Dressing: Keep the surgical dressing in place for at least one week. After the first week it may be removed and replace with light gauze and tape or nothing. It may get wet after 3 days but avoid soaking the dressing. If it gets wet, just lightly pat dry. It is important to always keep some gauze between skin folds, especially when you are sitting. Spend some time with the wound exposed when you are lying flat as the incision does wrinkle onto itself. Medications: - You should take Tylenol and an anti-inflammatory Celebrex as your primary pain control medications. If the Celebrex is too expensive or not covered, please call the office for another alternative (Advil/Ibuprofen or Naproxen/Aleve). - You have been prescribed a stronger pain medication Oxycodone for breakthrough pain, take as needed as prescribed. - You have also been prescribed a stomach acid reduction agent Pantoprozole to help reduce stomach acid and reflux. - You have also been prescribed Decadron to help with post-operative nausea and pain. You will take this for two days starting tomorrow. - You will be taking Aspirin 81mg twice a day for DVT prevention unless instructed otherwise. - If you have constipation you should take Colace or Miralax (both [id number]). It takes most people 3-4 days to have a bowel movement. Follow-up: 2 weeks If you have any acute concerns or questions, please do not hesitate to contact the office at [phone]. You may contact Dr. Mendoza with any questions after hours through the hospital at [phone] or on his cell phone at [phone]. Referrals: Gino Mendoza MD [ [facility] ST[facility]FF [facility]YSICIAN] - Activity:: Activity as Tolerated Equipment/Supplies:: Walker Diet:: As Tolerated Discharge Orders Discharge Orders: Discharge Order (Routine); Ordered 01/16/23 Ordered By: Gino Mendoza DS: Diagnosis Discharge Diagnosis (1) Osteoarthritis of both hips: Status: Acute
--- NOTE | 2023-01-16 13:11 | W.ANESPOSTOP ---
Postoperative Evaluation Date, Time and Location Date Performed: 01/16/23 Time Performed: 12:51 Patient Location: Day Surgery Unit Vital Signs Most Recent Imported Vital Signs: Most Recent Vital Signs Temp Pulse Resp BP Pulse Ox 36.3 C L 57 L 16 120/74 95 01/16/23 12:42 01/16/23 12:42 01/16/23 12:42 01/16/23 12:42 01/16/23 12:42 Pain Score Most Recent Pain Score: Most Recent Pain Score Pain Level 0 01/16/23 12:42 Assessment Mental Status: Awake (Alert & Oriented to Patient Baseline) Airway and Respiratory Function: Patent airway with normal (patient baseline) respiratory exam Cardiovascular Function: Hemodynamically Stable Hydration Status: Adequately Hydrated Nausea & Vomiting: No Nausea or Vomiting Pain: Pain is tolerable per patient Peripheral Nerve Block: Patient did not receive a nerve block
--- NOTE | 2023-01-16 13:21 | IN_ITS ---
PT Notes Visit Reasons: B/L THR Physical Therapy Day Surgery Initial Evaluation Date: 01/16/2023 Referring Doctor: NORMAN Stern PT Orders: PT CONSULT: S/P Ortho surgery Precautions: WBAT on BLE with AD. Patient Profile/Admitting Diagnosis: Basim is a 67-year-old male with bilateral osteoarthritis of the hips and is s tatus post bilateral anterior total hip arthroplasty on postoperative day 0. 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 Independent with all aspects of ADLs prior to surgery. Lives with . Equipment Owned/DME: [facility] Subjective: Very pleasant and cooperative. A littel achy in B hips. Did indicate the L leg and foot being numby. Somewhat shaky in B arms and legs initially but subsided considerably towards the end of the walk. Denies chest pain, headache, and lightheadedness throughout session. No report of increased pain in the hips. Objective: General Observation: Mepilex Ag over surgical incisions. TEDS in B legs. Suzanna present in room throughout. Mental Status: Alert and oriented x 4. Pain: As above ROM: Right Lower Extremity: Hip flexion WFL. Hip abduction WFL. Knee flexion WFL. Ankle dorsiflexion WFL. Ankle plantarflexion WFL. Left Lower Extremity: Hip flexion WFL. Hip abduction WFL. Knee flexion WFL. Ankle dorsiflexion WFL. Ankle plantarflexion WFL. Strength: Right Lower Extremity: Hip flexors 4/5. Hip abductors 4/5. Knee flexors 4/5. Knee extensors 4/5. Ankle dorsiflexors 5/5. Ankle plantarflexors 5/5. Left Lower Extremity: Hip flexors 4/5. Hip abductors 4/5. Knee flexors 4/5. Knee extensors 4/5. Ankle dorsiflexors 5/5. Ankle plantarflexors 5/5. Sensation: Some numbness in L leg initially but subsided [facility] through the walk otherwise intact in B thighs and R leg/foot Bed Mobility/Transfers: Minimal cues provided for safe technique, hand placement, and AD management Supine to sit standby assist Sit to stand contact-guard assist with FWW Stand to sit standby assist with FWW Bed to chair standby assist with FWW Gait: Facilitated safe and correct performance of level surface ambulation covering a distance of 150 feet with step- through heel-toe reciprocal gait pattern using front-wheeled walker with minimal verbal cueing provided for gait pattern, limb advancement, posture, and AD management. Stairs: Guided patient with safe and correct negotiation of 6 x 4 inch steps and 4 x 6 inch steps while holding onto bilateral rails with step to gait pattern requiring minimal verbal cueing for safe technique with no report of increased pain in B hips Balance: Static Sitting: Normal Dynamic Sitting: Normal Static Standing: Fair Dynamic Standing: Fair Special Tests: Mobility Limitations Standardized Measure [facility] AM-PAC 6 clicks Basic Mobility Inpatient Short Form: Raw Score: 23 CMS Score: 11% deficit Informed Consent/Education: Patient instructed in purpose of PT consult. Packet containing DINA exercise protocol has been given to patient. Education and training on initial set of exercises that can be done at home have been completed with patient. Trained patient with correct performance of exercises below to maximize motor control, joint flexibility, soft tissue extensibility of the B hip musculature to facilitate return to independent functional mobility performance. Access Code: [email or web address] URL: [email or web address] Date: 01/16/2023 Prepared by: Lucy Raymundo Exercises - Gluteal Sets - 1 x daily - 7 x weekly - 1 sets - 10 reps - 5 hold - Supine Heel Slide - 1 x daily - 7 x weekly - 1 sets - 10 reps - 5 hold - Supine Ankle Pumps - 1 x daily - 7 x weekly - 1 sets - 10 reps - 5 hold - Seated March - 1 x daily - 7 x weekly - 1 sets - 10 reps - 5 hold - Seated Long Arc Quad - 1 x daily - 7 x weekly - 1 sets - 10 reps - 5 holdTrained patient with correct performance of exercises below to maximize motor control, joint flexibility, soft tissue extensibility of the Bhip and knee musculature: Assessment: Patient requires the use of front wheeled walker for all mobility ADL performance to maximize independence and reduce fall risk. Patient presents with clinical signs and symptoms consistent with current/admitting diagnoses that have resulted to mobility limitations, gait instability, generalized weakness, and impairment of motor control as demonstrated by the following impairment level findings: 1. Decreased strength to the hip major muscle groups 2. Impaired standing balance Impairments are contributing to the following functional limitations: 1. Inability to safely ambulate without assistive device 2. Increase completion time for mobility ADL performance 3. Increased fall risk Patient is assessed 30435 moderate complexity based on the following: History: 67-year-old male with impairment level findings, functional limitations, and past medical history as indicated above Examination: Demonstrable impairment in strength, balance, and mobility level with underlying impairments and functional limitations as documented above Presentation: Evolving Decision Makin moderate complexity Goals: N/A. PT evaluation and 1-2 treatment sessions only for functional mobility training using recommended AD and for HEP instruction. Plan of Care/Treatment Plan: N/A. PT evaluation and 1-2 treatment session only for functional mobility training using recommended AD and for HEP instruction. DISCHARGE RECOMMENDATIONS: Home when medically cleared by orthopedic surgeon. Recommend outpatient PT services in order to optimize functional mobility outcomes and facilitate return to independent community ambulation without an assistive device. TREATMENT CODE/TIME: 67381 x 25 minutes for 1 unit, 23924 x 27 minutes for 2 units beginning at 13:21 PM. Thank you for the opportunity to participate in the care of this patient. Lucy Raymundo PT, DPT, CLT [facility] [place], [place]
== END 2023-01-16 14:45 | disposition home or self-care (01) | DRG 462 ==
LOC: PDS 12:39 → DSU 01-28 10:31
PROVIDERS: PCP Family Medicine; Visit Provider Student in an Organized Health Care Education/Training Program
PROC: 0SR90JZ Replacement of Right Hip Joint with Synthetic Substitute, Open Approach (ICD-10-PCS; CPT 27130; principal; 2023-01-16 07:30)
DX: M16.0 Bilateral primary osteoarthritis of hip (principal); G40.109 Localization-related (focal) (partial) symptomatic epilepsy and epileptic syndromes with simple partial seizures, not intractable, without status epilepticus; E78.5 Hyperlipidemia, unspecified; R53.1 Weakness; Z79.82 Long term (current) use of aspirin; E53.8 Deficiency of other specified B group vitamins; F41.9 Anxiety disorder, unspecified; R30.0 Dysuria; I69.211 Memory deficit following other nontraumatic intracranial hemorrhage; F32.A Depression, unspecified; K21.9 Gastro-esophageal reflux disease without esophagitis; G47.33 Obstructive sleep apnea (adult) (pediatric); Z79.899 Other long term (current) drug therapy
CPT/HCPCS: 27130; 20985; C1776; 86850; 86900; 86901; 97162; 97530; 73501; J0690; J1100; J2250; J2371; J2405

== ENCOUNTER 2023-01-31 11:29 | Outpatient (CLI) | payer OTHER, MEDICARE, SELFPAY ==
--- NOTE | 2023-01-31 09:15 | DI.RAD_ITS ---
Exam(s) XR HIP PELVIS ADULT BL EXAM: XR HIP PELVIS ADULT BL CLINICAL HISTORY: 1st post op s/p bilat DINA. TECHNIQUE: 2D digital imaging was performed of the pelvis and bilateral hips. Four images were obta ined. AP pelvis and lateral views of both hips were obtained. COMPARISON: CR XR HIP PELVIS ADULT BL from 08/14/2022 CR XR PELVIS AP from 11/12/2022 XA XR HIP LT IN OR from 01/16/2023 XA XR HIP RT IN OR from 01/16/2023 FINDINGS: BONES: No acute fracture is present. No bony destructive lesion is seen. JOINTS: There are stable bilateral total hip replacements. No suspicious lucencies are seen in or ab out the orthopedic hardware. SOFT TISSUE: Normal. IMPRESSION: Stable bilateral total hip replacements. DATA REPOSITORY: RADIATION DOSE DELIVERED:
== END 2023-01-31 11:30 | disposition home or self-care (01) ==
LOC: DIORS 11:31
PROVIDERS: PCP Family Medicine; Visit Provider Physician Assistant
DX: Z96.643 Presence of artificial hip joint, bilateral (principal); Z47.1 Aftercare following joint replacement surgery
CPT/HCPCS: 73521

== ENCOUNTER → 2023-03-01 09:47 | Outpatient (BNVA) | payer MEDICARE, BC, SELFPAY | PROVIDERS: PCP Family Medicine; Visit Provider Student in an Organized Health Care Education/Training Program | DX: Z47.1 Aftercare following joint replacement surgery (principal); Z96.643 Presence of artificial hip joint, bilateral ==

== ENCOUNTER 2023-06-21 05:36 | Outpatient (CLI) | payer BC, MEDICARE, SELFPAY ==
[2023-06-21 16:05] LABS: TROPONIN-I 9.2 ug/mL (4.0-12.0); VALPROIC ACID 54.9 ug/mL
== END 2023-06-21 05:37 | disposition home or self-care (01) ==
LOC: LBO 05:42
PROVIDERS: PCP Family Medicine; Visit Provider Family Medicine
DX: Z79.899 Other long term (current) drug therapy (principal)
CPT/HCPCS: 36415; 80156; 80164

== ENCOUNTER 2024-01-20 16:05 | Outpatient (CLI) | payer BC, MEDICARE, SELFPAY ==
--- NOTE | 2024-01-20 10:00 | DI.RAD_ITS ---
Exam(s) XR HIP RT AP LAT ONLY XR HIP LT AP LAT ONLY EXAM: XR HIP RT AP LAT ONLY CLINICAL HISTORY: ANNUAL F/U BILAT THAS. TECHNIQUE: 2D digital imaging was performed. Two views COMPARISON: CR XR HIP PELVIS ADULT BL from 01/31/2023 CR XR HIP LT AP LAT ONLY from 01/20/2024 FINDINGS: BONES: No acute fracture is present. No bony destructive lesion is seen. JOINTS: No dislocation present. Stable alignment of bilateral hip prostheses. SOFT TISSUE: Normal. IMPRESSION: No stable appearance of bilateral hip prostheses. DATA REPOSITORY: RADIATION DOSE DELIVERED:
--- NOTE | 2024-01-20 10:56 | DI.RAD_ITS ---
Exam(s) XR KNEE RT 3V AP,LAT,MAXWELL EXAM: XR KNEE RT 3V AP,LAT,MAXWELL CLINICAL HISTORY: R knee pain. TECHNIQUE: 2D digital imaging was performed. Three views. COMPARISON: No exams were available for comparison FINDINGS: BONES: No acute fracture is present. No bony destructive lesion is seen. JOINTS: Moderate to severe narrowing of the medial femoral tibial joint space. There is spurring fro m the medial femoral condyle medial tibial plateau little sclerosis. Mild varus angulation. Mild de generative changes at the patellofemoral joint. No joint effusion is seen. SOFT TISSUE: Normal. IMPRESSION: Moderate degenerative changes of the medial femoral tibial joint. DATA REPOSITORY: RADIATION DOSE DELIVERED:
== END 2024-01-20 16:06 | disposition home or self-care (01) ==
LOC: DIORS 16:05
PROVIDERS: PCP Family Medicine; Visit Provider Student in an Organized Health Care Education/Training Program
DX: Z96.643 Presence of artificial hip joint, bilateral (principal); M17.0 Bilateral primary osteoarthritis of knee; Z47.1 Aftercare following joint replacement surgery
CPT/HCPCS: 73562; 73502

== ENCOUNTER 2024-03-18 04:08 | Outpatient (CLI) | payer BC, MEDICARE, SELFPAY ==
[2024-03-18 07:24] LABS: HCT 43.1 % (40.0-50.0); HGB 13.4 g/dL (13.5-17.5); MCH 27.7 pg (27.0-33.0); MCHC 31.1 % (32.0-36.0); MCV 89 fL (80-95); MPV 10.9 fL (8.0-11.0); Platelet Count 185 10^3/uL (130-400); RBC 4.83 10^6/uL (4.36-5.78); RDW-SD 52.8 fL; WBC 3.66 10^3/uL (4.4-10.8)
[2024-03-18 07:51] LABS: TROPONIN-I 11.6 ug/mL (4.0-12.0); VALPROIC ACID 56.7 ug/mL
[2024-03-18 08:09] LABS: ALT 27 U/L (16-63); AST 20 U/L (15-37); Albumin 3.8 g/dL (3.4-5.0); Alkaline Phosphatase 66 U/L (46-116); Anion Gap 1.3 mmol/L (3-11); BUN 19 mg/dL (7-18); CO2 32.7 mmol/L (21.0-32.0); Chloride 111 mmol/L (98-107); Estimated GFR 81.98 (mL/min/1.73m2); Glucose 98 mg/dL (74-106); Potassium 4.8 mmol/L (3.5-5.1); Sodium 145 mmol/L (136-145); Total Protein 6.7 g/dL (6.4-8.2)
== END 2024-03-18 04:09 | disposition home or self-care (01) ==
PROVIDERS: PCP Family Medicine; Visit Provider Family Medicine
DX: R56.9 Unspecified convulsions (principal); I69.211 Memory deficit following other nontraumatic intracranial hemorrhage; I60.9 Nontraumatic subarachnoid hemorrhage, unspecified; I10 Essential (primary) hypertension
CPT/HCPCS: 36415; 80053; 85027; 80156; 80164

== ENCOUNTER 2024-10-20 15:59 | Outpatient (CLI) | payer BC, MEDICARE, SELFPAY ==
[2024-10-20 12:38] LABS: HCT 44.3 % (40.0-50.0); HGB 14.5 g/dL (13.5-17.5); MCH 29.2 pg (27.0-33.0); MCHC 32.7 % (32.0-36.0); MCV 89 fL (80-95); MPV 10.9 fL (8.0-11.0); Platelet Count 178 10^3/uL (130-400); RBC 4.96 10^6/uL (4.36-5.78); RDW 16.4 % (11.8-14.1); RDW-SD 53.8 fL; WBC 5.14 10^3/uL (4.4-10.8)
[2024-10-20 14:12] LABS: ALT 30 U/L (16-63); AST 23 U/L (15-37); Albumin 3.9 g/dL (3.4-5.0); Alkaline Phosphatase 81 U/L (46-116); Anion Gap 6.9 mmol/L (3-11); BUN 15 mg/dL (7-18); Bilirubin, Total 0.4 mg/dL (0.2-1.0); CO2 27.1 mmol/L (21.0-32.0); Calcium 10.1 mg/dL (8.5-10.1); Chloride 107 mmol/L (98-107); Estimated GFR 81.47 (mL/min/1.73m2); Glucose 98 mg/dL (74-106); Potassium 4.5 mmol/L (3.5-5.1); Sodium 141 mmol/L (136-145); Total Protein 7.0 g/dL (6.4-8.2)
[2024-10-21 09:14] LABS: PSA, Diagnostic 0.5 ng/mL (<=4.5)
== END 2024-10-20 16:00 | disposition home or self-care (01) ==
LOC: LBO 16:00
PROVIDERS: PCP Family Medicine; Visit Provider Family Medicine
DX: Z00.00 Encounter for general adult medical examination without abnormal findings (principal); G40.109 Localization-related (focal) (partial) symptomatic epilepsy and epileptic syndromes with simple partial seizures, not intractable, without status epilepticus; I10 Essential (primary) hypertension
CPT/HCPCS: 36415; 80053; 85027; 80164; 84153